=== PATIENT | male | born 1995 | race Caucasian/White ===

== ENCOUNTER 2017-09-01 13:09 | Emergency (ER) | payer OTHER ==
[2017-09-01] MEDS: AUGMENTIN 875 MG TAB PO (14:30)
== END 2017-09-01 14:58 | disposition home or self-care (01) ==
LOC: M ED 13:09
DX: J03.90 Acute tonsillitis, unspecified (principal)
CPT/HCPCS: 99283

== ENCOUNTER 2017-10-05 21:51 | Emergency (ER) | payer OTHER ==
[2017-10-05 22:30] LABS: KETONE, URINE AUTO RFX NEGATIVE (NEGATIVE); LEUKOCYTE ESTERASE UR AUTO RFX NEGATIVE (NEGATIVE); MUCUS, URINE RFX SMALL (NEGATIVE); NITRITE, URINE AUTO RFX NEGATIVE (NEGATIVE); RBC, URINE AUTO RFX 6 /HPF (0-3); SPECIFIC GRAVITY UR AUTO RFX 1.017 (1.002-1.035); SQUAM EPITHELIAL CELL UR AURFX 0 /HPF (0-6); WBC, URINE AUTO RFX 1 /HPF (0-3)
== END 2017-10-05 23:04 | disposition home or self-care (01) ==
LOC: M ED 21:51
DX: Z03.89 Encounter for observation for other suspected diseases and conditions ruled out (principal)
CPT/HCPCS: 81001

== ENCOUNTER → 2018-02-27 | Outpatient (CLI) | payer OTHER ==
[~2018-02-27] MED LIST: CONRAY-43 43% 50ML VIAL (Q9960) As Ordered; PROHANCE 279.3MG/ML 5ML VIAL (A9576) As Ordered
== END ==
LOC: M RADPRO 06:42
DX: M24.112 Other articular cartilage disorders, left shoulder (principal); M75.82 Other shoulder lesions, left shoulder; M25.512 Pain in left shoulder
CPT/HCPCS: 23350

== ENCOUNTER → 2018-03-02 | Outpatient (CLI) | payer OTHER | LOC: M RADPRO 06:41 | DX: M75.21 Bicipital tendinitis, right shoulder (principal); M25.511 Pain in right shoulder | CPT/HCPCS: 23350 ==